=== PATIENT | female | born 1995 | race Caucasian/White ===

== ENCOUNTER 2018-12-30 20:00 | Inpatient (IN) | payer MEDICAID, OTHER ==
[~2018-12-30] VITALS: Ht 162.6 cm; Wt 65.6 kg
[2018-12-30] MEDS ORDERED: LACTATED RINGER'S 1,000 ML IV PRN (21:15)
[2018-12-30] MEDS ORDERED: CARBOPROST 250 MCG INJ IM PRN (21:30)
[2018-12-30] MEDS ORDERED: IBUPROFEN 600 MG TAB PO PRN (21:30)
[2018-12-30] MEDS ORDERED: OXYTOCIN 30 UNITS/LR 500 ML IV PRN (21:30)
[2018-12-30] MEDS ORDERED: METHYLERGONOVINE 0.2 MG INJ IM PRN (21:30)
[2018-12-30] MEDS ORDERED: OXYTOCIN 30 UNITS/LR 500 ML IV SCH ×2 (21:30)
[2018-12-30] MEDS ORDERED: LIDOCAINE 1% (MPF) 30 ML INJ INJ PRN (21:30)
[2018-12-30] MEDS ORDERED: MISOPROSTOL 200 MCG TAB PR PRN (21:30)
[2018-12-30 21:33] VITALS: Ht 162.6 cm; Wt 65.6 kg
[2018-12-30 21:35] VITALS: BP 124/84; PULSE 83; RESP 16
[2018-12-30] MEDS: LACTATED RINGER'S 1,000 ML IV SCH (21:38)
[2018-12-30] MEDS: MISOPROSTOL 50 MCG CAPSULE PO SCH (22:50)
[2018-12-31] MEDS: LACTATED RINGER'S 1,000 ML IV SCH ×3 (02:05→17:24)
[2018-12-31] MEDS: MISOPROSTOL 50 MCG CAPSULE PO SCH ×5 (02:51→22:32)
--- NOTE | 2018-12-31 11:55 | PREOPHP ---
DATE OF ADMISSION: 12/30/2018 HISTORY OF PRESENT ILLNESS: Ms. Saadia Herndon is a 23-year-old 1, para 0, EDC 12/28/2018 i ntrauterine at 40 weeks and 2 days gestational age, admitted for post-EDC induction. She i s currently on Cytotec for cervical ripening. She denies any contractions, vaginal bleeding, or disc harge. Her care took place at [facility]. PAST MEDICAL HISTORY: None. MEDICATIONS: vitamins. PAST SURGICAL HISTORY: None. OBSTETRIC HISTORY: Primigravida. GYNECOLOGIC HISTORY: 12, regular 3 to 4 days. Denies any sexually transmitted infection. Sexually active with 1 partner. SOCIAL HISTORY: Denies any smoking, drugs or alcohol. FAMILY HISTORY: None. REVIEW OF SYSTEMS: All within normal except history of present illness. PHYSICAL EXAMINATION: HEENT: Within normal. LUNGS: CTA bilateral. CARDIOVASCULAR: S1, S2, regular rhythm. ABDOMEN: Gravid, nontender. Negative CVA bilateral. EXTREMITIES: Negative. No calf tenderness. PELVIC: Vaginal exam short and closed. heart tracing category 1, toco occasional contractions . ASSESSMENT: Intrauterine at 40 weeks and 2 days gestational age, admitted for post-EDC ind uction. Currently on Cytotec for cervical ripening. PLAN: Continue cervix Cytotec regimen and continue with Pitocin induction. Risks, benefits and alte rnatives explained. All questions were answered. Dictated By: JOANNA PATEL/KATLYN Conf#: [id number] DID#: [id number]
[2019-01-01] MEDS ORDERED: OXYTOCIN 30 UNITS/LR 500 ML IV SCH (06:00)
[2019-01-01] MEDS: LACTATED RINGER'S 1,000 ML IV SCH ×3 (06:06→19:27)
[2019-01-01] MEDS ORDERED: FENTAnyl 2MCG/ML-ROPIV 0.2% 100 ML ONE (15:25)
--- NOTE | 2019-01-01 15:27 | PREAC ---
Date/Time of Note Date/Time of Note DATE: 01/01/19 TIME: 15:27 Anesthesia Eval and Record Evaluation Time Pre-Procedure Interview DATE: 01/01/19 TIME: 15:27 Age 23 Sex female NPO: 8 hrs Preoperative diagnosis LABOR PAIN Planned procedure LABOR EPIDURAL Past Medical History Past Medical History: Includes : : (1), Para: (0), Gestational age: (40 4/7) Surgery & Anesthesia Issues No known issue Meds Anticoagulation: No Beta Cecelia within 24 hr: No Reason Beta Cecelia not given: Pt. not on B-Cecelia Current Medications Lactated Ringer's 1,000 ml @ 125 mls/hr Q8H IV Last administered on 01/01/19at 14:16; Admin Dose 125 MLS/HR; Start 12/30/18 at 21:15 Lidocaine (Xylocaine 1% (Mpf)) 30 ml ONCE PRN INJ .EPISIOTOMY; Start 12/30/18 at 21:30 Oxytocin/Lactated Ringer's 500 ml @ 500 mls/hr ONCE POST IV ; Start 12/30/18 at 21:30 Oxytocin/Lactated Ringer's 500 ml @ 125 mls/hr POST IV ; Start 12/30/18 at 21:30 Ibuprofen (Motrin) 600 mg ONCE PRN PO .PAIN 1-5; Start 12/30/18 at 21:30 Lactated Ringer's 1,000 ml @ 2,000 mls/hr Q30M PRN IV .ANESTHESIA; Start 12/30/18 at 21:15 Oxytocin/Lactated Ringer's 500 ml @ 0 mls/hr ONCE PRN IV .VAGINAL BLEEDING; Start 12/30/18 at 21:30 Methylergonovine Maleate (Methergine) 0.2 mg ONCE PRN IM .VAGINAL BLEEDING; Start 12/30/18 at 21:30 Carboprost Tromethamine (Hemabate) 250 mcg ONCE PRN IM .VAGINAL BLEEDING; Start 12/30/18 at 21:30 Misoprostol (Cytotec) 1,000 mcg ONCE PRN TN .VAGINAL BLEEDING; Start 12/30/18 at 21:30 Oxytocin/Lactated Ringer's 500 ml @ 0 mls/hr FOR INDUCTION IV Last administered on 01/01/19at 06:04; Admin Dose 1 MLS/HR; Start 01/01/19 at 06:00 Meds reviewed: Yes Allergies Uncoded Allergies: SULFATE (Allergy, Unknown, 12/30/18) SWELLING Allergies Reviewed: Yes Labs/Studies Labs Reviewed: Reviewed by anesthesiologist Result Diagram: 12/30/182099 test: N/A Pre-procedure Exam Last vitals Vital Signs Date Temp Pulse Resp B/P (MAP) Pulse Ox O2 O2 Flow FiO2 Time Delivery Rate 12/30/18 97.7 83 16 124/84 Room Air 21:35 (97) Airway: Adequate mouth opening, Adequate thyromental dist Mallampati: Mallampati II Teeth: Normal Lung: Normal Heart: Normal ASA Physical Status ASA physical status: 2 Emergency: None Planned Anesthetic Neuraxial: Epidural Planned Pain Management Epidural Pre-operative Attestations Prior to commencing anesthesia and surgery, the patient was re-evaluated, there was verification of: *The patient's identity *The results of appropriate recent lab work and preoperative vital signs *The above evaluation not changing prior to induction *Anesthetic plan, risk benefits, alternative and complications discussed with patient/family; questions answered; patient/family understands, accepts and wishes to proceed. Idris Toure M.D. Jan 01, 2019 15:27
[2019-01-01] MEDS ORDERED: TRIMETHOBENZAMIDE 100 MG/ML VIAL IM PRN ×2 (15:30→20:00)
[2019-01-01] MEDS ORDERED: ONDANSETRON 4 MG INJ IV PRN ×2 (15:30→20:00)
[2019-01-01] MEDS ORDERED: DIPHENHYDRAMINE 50 MG INJ IV PRN ×2 (15:30→20:00)
[2019-01-01] MEDS ORDERED: NALOXONE (0.4 MG/ML) INJ IV PRN ×2 (15:30→20:00)
--- NOTE | 2019-01-01 15:55 | PAC ---
Date/Time of Note Date/Time of Note DATE: 01/01/19 TIME: 15:54 Post-Anesthesia Notes Post-Anesthesia Note Last documented vital signs Vital Signs Date Temp Pulse Resp B/P (MAP) Pulse Ox O2 O2 Flow FiO2 Time Delivery Rate 12/30/18 97.7 83 16 124/84 Room Air 21:35 (97) Activity: WNL Respiratory function: WNL Cardiovascular function: WNL Mental status: Baseline Pain reasonably controlled: Yes Hydration appropriate: Yes Nausea/Vomiting absent: Yes Idris Toure M.D. Jan 01, 2019 15:55
[2019-01-01] MEDS ORDERED: FENTAnyl 2MCG/ML-ROPIV 0.2% 100 ML BAG EPI SCH (20:00)
--- NOTE | 2019-01-01 22:44 | LDN ---
Date/Time of Note Date/Time of Note DATE: 01/01/19 TIME: 22:43 Delivery Summary Weeks of Gestation 40 Placenta Delivered: Spontaneously Meconium: none Episiotomy: No Perineal laceration: 2 Laceration repair: 2nd degree vaginal laceration repair with 2-0 and 3-0 chromic Anesthesia type: Epidural Estimated blood loss: 200 Sponge & Needle done & correct: Yes All needle counts correct: Yes Any foreign bodies felt in the: No Infant Delivery Information Sex Infant Sex: female Apgars 1 Minute: 8 5 Minute: 9 Suctioning Nose & mouth suctioned at simone: No Delee suction performed: No Umbilical Cord Umbilical cord with: 3 Vessels Cord presentations: no nuchal cord Cord Blood was obtained: Yes JOANNA LAI MD Jan 01, 2019 22:44
[2019-01-02] VITALS (7 sets, daily range): BP systolic 104–116; BP diastolic 59–76; PULSE 63–83; RESP 14–18
[2019-01-02] MEDS ORDERED: OXYTOCIN 30 UNITS/LR 500 ML IV SCH ×3 (00:35→00:39)
[2019-01-02] MEDS ORDERED: METHYLERGONOVINE 0.2 MG INJ IM PRN ×3 (01:00)
[2019-01-02] MEDS ORDERED: NACL 0.9% 3 ML SYG IV SCH ×3 (01:00)
[2019-01-02] MEDS ORDERED: BENZOCAINE 20% 56 ML SPRAY TOP PRN (01:00)
[2019-01-02] MEDS ORDERED: OXYTOCIN 30 UNITS/LR 500 ML IV PRN ×3 (01:00)
[2019-01-02] MEDS ORDERED: MISOPROSTOL 200 MCG TAB PR PRN ×3 (01:00)
[2019-01-02] MEDS ORDERED: WITCH HAZEL/GLYCERIN PAD PR PRN (01:00)
[2019-01-02] MEDS ORDERED: CARBOPROST 250 MCG INJ IM PRN ×3 (01:00)
[2019-01-02] MEDS: LANOLIN HPA 1 PKT TOP PRN (02:27)
[2019-01-02] MEDS: IBUPROFEN 600 MG TAB PO SCH ×4 (02:49→21:23)
[2019-01-02] MEDS ORDERED: IBUPROFEN 600 MG TAB PO SCH ×2 (06:00)
--- NOTE | 2019-01-02 07:06 | EN ---
Date/Time of Note Date/Time of Note DATE: 01/02/19 TIME: 07:03 Event Note Medicine Medicine Event Note Rapid response was called around 5:30 AM. Patient was in the restroom when she felt easy and felt tired. Reportedly, when she was on the bed, she was noted to have some jerking movement on the left side of her body. Patient and family member who was at the bedside denied history of seizure. Vitals are stable. Patient appears somehow tired, but she is alert and oriented and answering questions appropriately. No focal weakness on physical exam PLAN -CBC and CMP -Twelve-lead EKG -If jerking movements recurs, head CT and EEG AMBROCIO WARD MD Jan 02, 2019 07:06
[2019-01-02] MEDS: SENNA/DOCUSATE NA (8.6MG/50MG) TAB PO SCH ×2 (08:20→21:23)
[2019-01-02] MEDS ORDERED: POTASSIUM CHLORIDE (SR) 20 MEQ TAB PO SCH (08:30)
--- NOTE | 2019-01-02 11:29 | QN ---
Documentation Comment progress note ppd 1 patient was seen and evaluated aao X 3 patient had a questional seizure ana this morning however spoke with a family member who was in the room at the time reports she was "shivering) vs stable afebrile ab sof nt uterine fundus normal extemity no edema no calf tenderness a/ sp vaginal delivery ppd 1 stable afebrile p/ fu with hospitalist JOANNA LAI MD Jan 02, 2019 11:29
--- NOTE | 2019-01-02 15:42 | RADRPT ---
Vent Rate: 66 bpm RR Interval: 912 msec AL Interval: 166 msec QRS Duration: 79 msec QT Interval: 390 msec QTC Interval: 408 msec P-R-T [place]: 64 - 69 - 45 degrees Sinus rhythm...normal P axis, V-rate 50- 99 Electronically Signed By: Magno Hanley
[2019-01-03] VITALS (9 sets, daily range): BP systolic 93–114; BP diastolic 57–79; PULSE 64–105; RESP 14–19
[2019-01-03] MEDS: IBUPROFEN 600 MG TAB PO SCH ×4 (03:07→23:37)
[2019-01-03] MEDS: SENNA/DOCUSATE NA (8.6MG/50MG) TAB PO SCH ×2 (08:49→20:59)
[2019-01-03] MEDS: LANOLIN HPA 1 PKT TOP PRN (10:29)
--- NOTE | 2019-01-03 23:54 | QN ---
Documentation Comment Patent reports had a faint episode yesterday. Apparently a rapid response was called when the patient had a fainting episode. Patient denies losing any consciousness. There was a questionable jerking movement of the upper extremity by family witnessed. Patient reports after that episode could ambulating. She urinated. She reports occasional lightheadedness. She denies any chest pain or shortness of breath. General appearance: Alert and oriented x4 does not appear to be in any acute distress Abdomen: Soft, fundus palpable below the umbilicus and nontender. Extremity: No calf tenderness, no click no edema no cord palpable CV: RRR Chest: Clear to auscultation bilaterally Breast: No evidence of mastitis or fissure VS - Last 72 Hours, by Label Date Temp Pulse Resp B/P (MAP) Pulse Ox O2 O2 Flow FiO2 Time Delivery Rate 01/03/19 86 108/63 16:50 (78) 01/03/19 102 108/70 16:49 (83) 01/03/19 98.4 100 14 114/68 Room Air 16:48 (83) 01/03/19 68 112/62 10:05 (79) 01/03/19 105 104/62 10:02 (76) 01/03/19 82 16 93/57 (69) Room Air 10:00 01/03/19 98.4 64 16 113/79 Room Air 08:30 (90) 01/03/19 98.3 68 18 110/59 Room Air 04:11 (76) 01/02/19 98.2 83 18 116/76 Room Air 19:45 (89) 01/02/19 98.1 72 16 104/59 Room Air 16:45 (74) 01/02/19 98.4 68 17 112/67 Room Air 12:37 (82) 01/02/19 98.6 63 14 106/64 Room Air 08:30 (78) 01/02/19 61 05:20 01/02/19 98.8 80 18 109/71 Room Air 03:30 (84) 01/02/19 98.6 82 18 116/74 Room Air 03:00 (88) 01/02/19 98.0 65 18 108/65 Room Air 00:25 (79) Laboratory Tests Test 01/03/19 10:48 Hemoglobin 12.1 Hematocrit 35.4 L Status post day #2 Fainting episode, unclear etiology. Hemoglobin stable. Patient is not anemic and hemodynamically stable Etiology of fainting versus questionable seizure unclear Apparently there was some jerking movement of upper extremities witnessed by family. Patient was seen by hospitalist. Recommended more evaluation including CVA if episode occurs again Orthostatics abnormal. Patient does not appear to be bleeding. Recommended patient to be seen again by hospitalist . Might need more further assessment and evaluation. Ambulation at this time only with nursing assistance. If any episodes of jerking movement occurs again RN to inform hospitalist Patient at this point will stay in the hospital until be seen tomorrow by hospitalist. Dr. CEBALLOS agreed to see the patient in a.. MANUEL BAI MD Jan 03, 2019 23:54
[2019-01-04] VITALS (8 sets, daily range): BP systolic 105–122; BP diastolic 55–78; PULSE 74–101; RESP 15–19
[2019-01-04] MEDS: IBUPROFEN 600 MG TAB PO SCH ×4 (05:40→21:00)
[2019-01-04] MEDS: SENNA/DOCUSATE NA (8.6MG/50MG) TAB PO SCH ×2 (10:46→23:33)
--- NOTE | 2019-01-04 11:18 | RADRPT ---
Echocardiogram Report Patient Name: HIEN ROTHMANPatient ID: [id number] : 1995 (23y 9m)Study Date: 01/04/2019 7:37:52 AM Gender: FAccession #: [id number] Tech: Gray Pena RDCS Location: 328 Ref.Physician: AMBROCIO WARD Height(Cm): BSA: Weight(Kg): Quality: AdequateOrder Physician: AMBROCIO WARD Account #: Procedures: Echocardiographic Report: Transthoracic echocardiogram with complete 2D, M-Mode, and doppler examination. Indications: Dizziness, and Syncope. Measurements: 2D/M Mode Doppler Measurement Value Normal Range Measurement Value Normal Range LVIDd 2D 5.0 [ 3.8 - 5.2 ] cm AV Peak González 1.5 [ 100.0 - 170.0 ] cm/sec LVIDs 2D 2.9 [ 2.2 - 3.5 ] cm AV Peak PG 9.0 [ 2.0 - 9.0 ] mmHg LVPWd 2D 0.7 [ 0.6 - 0.9 ] cm LVOT Peak González 1.2 [ 70.0 - 110.0 ] cm/sec IVSd 2D 0.6 [ 0.6 - 0.9 ] cm LVOT Peak PG 6.0 [ 2.0 - 6.0 ] mmHg AoR Diam 2D 2.2 [ 2.3 - 3.1 ] cm MV E Peak González 1.0 [ 60.0 - 130.0 ] cm/sec EDV 2D 117.0 [ 46.0 - 106.0 ] ml MV A Peak González 0.7 [ 100.0 - 120.0 ] cm/sec ESV 2D 31.1 [ 14.0 - 42.0 ] ml MV E/A 1.5 [ 0.8 - 1.5 ] ratio EF 2D 73.4 [ 54.0 - 74.0 ] percent MV Decel Time 222 [ 104 - 258 ] msec LA Dimen 2D 3.0 [ 2.7 - 3.8 ] cm Lat E` González 0.2 [ 10.0 - 15.0 ] cm/sec Lateral E/E` 6.0 [ 1.0 - 2.0 ] ratio MV E/A 1.5 [ 0.8 - 1.5 ] ratio TR Peak González 2.7 [ 100.0 - 280.0 ] cm/sec TR Peak PG 30.0 mmHg RVSP 33.0 [ 10.0 - 36.0 ] mmHg RA Pressure 3.0 mmHg Findings: Left Ventricle: Normal left ventricular systolic function. Normal left ventricular cavity size. Normal left ventricular wall thickness. Ejection fraction is visually estimated at 55 %. Tissue Doppler/Mitral Doppler indices are within normal limits. Right Ventricle: Normal right ventricular size. Normal right ventricular systolic function. Left Atrium: The left atrium is normal in size. Right Atrium: The right atrium is normal in size. Mitral Valve: Normal appearance and function of the mitral valve with trace physiologic regurgitation. Aortic Valve: Normal appearance of the aortic valve. No significant aortic stenosis or insufficiency. Tricuspid Valve: Normal appearance of the tricuspid valve. The estimated Peak RVSP is 33 mmHg. There is mild tricuspid regurgitation. Pulmonic Valve: Normal pulmonic valve appearance. Pericardium: Normal pericardium with no significant pericardial effusion. Aorta: Normal aortic root. IVC: Normal size and normal respiratory collapse consistent with normal right atrial pressure. Conclusions: Normal left ventricular systolic function. Normal left ventricular cavity size. Normal left ventricular wall thickness. Ejection fraction is visually estimated at 55 %. Tissue Doppler/Mitral Doppler indices are within normal limits. Normal appearance of the tricuspid valve. The estimated Peak RVSP is 33 mmHg. There is mild tricuspid regurgitation. Normal appearance and function of the mitral valve with trace physiologic regurgitation. Electronically Signed By: Santi Jama 2019-01-04 11:18:03 PDT
--- NOTE | 2019-01-04 13:55 | RADRPT ---
Vent Rate: 57 bpm RR Interval: 1048 msec SC Interval: 156 msec QRS Duration: 81 msec QT Interval: 424 msec QTC Interval: 414 msec P-R-T [place]: 60 - 63 - 46 degrees Sinus rhythm...normal P axis, V-rate 50- 99 Electronically Signed By: Magno Hanley
[2019-01-04] MEDS ORDERED: MECLIZINE 25 MG TAB PO PRN (14:00)
--- NOTE | 2019-01-04 15:29 | CONS ---
Assessment/Plan Assessment/Plan Hospital Course (Demo Recall) Assessment and plan 1. Suspect dizziness/vertigo. Largely resolved at present. Suspect remnants from reported epidural use during . meclizine prn. Echo with EF of 55%. CT scan brain with no acute findings. EKG with normal sinus rhythm. Orthostatic blood pressures done with no significant hypotension. No significant anemia. Patient did report ambulating around hospital unit with no further symptoms of dizziness or vertigo. Will monitor. 2. Status post vaginal delivery. Remains stable at present. Continue supportive care. Disposition plan. Overall remained stable at present. No reports of syncope, dizziness, or vertigo. Stable from hospital standpoint for discharge. Follow- up with [facility]. Discussed POC with Dr. Malave Consultation Date/Type/Reason Admit Date/Time Dec 30, 2018 at 20:00 Date/Time of Note DATE: 01/04/19 TIME: 15:20 Hx of Present Illness This is a 23 year old female with recent vaginal delivery on January 01, 2019, was brought through the hospital service the reports of dizziness. Was reported on January 02, 2019 that rapid response was called. Patient was in the restroom when she reportedly felt dizzy and was found to have some jerking movement on left side of her body. She denied any history of seizures. Vital signs remained stable. CT scan of the brain was ordered that showed no acute intracranial hemorrhage or transcortical infarction. Echo with preserved EF with ejection fraction 55%. No elect light disturbance is noted. Orthostatic blood pressures were also obtained with no significant hypertension seen. Patient was ambulated around the room thereafter and denies any chest pain shortness of breath or any further symptoms of dizziness. Suspect etiology from reported epidural use during . He is alert and oriented at present. Denies any cephalgia. We will evaluate her for the aformentiond issues. 12 point review of systems and negative except as mentioned in history of present illness Past Medical History medical/surgical history 1. denies any previous history Medications Current Medications Senna/Docusate Sodium (Senokot-S) 1 tab BID PO Last administered on 01/04/19at 10:46; Admin Dose 1 TAB; Start 01/02/19 at 09:00 Witch Rachana/ Glycerin (Tucks Pads) 1 pad BEDSIDE MEDICATION PRN IN .HEMORRHOID/EPISIOTOMY PAIN Last administered on 01/02/19at 02:27; Admin Dose 40 PAD; Start 01/02/19 at 01:00 Benzocaine (Dermoplast [place]) 1 spray BEDSIDE MEDICATION PRN TOP .HEMMORHOID/EPISIOTOMY PAIN Last administered on 01/02/19at 02:27; Admin Dose 56 SPRAY; Start 01/02/19 at 01:00 Lanolin (Lanolin Hpa) 1 applic BEDSIDE MEDICATION PRN TOP .NIPPLES Last administered on 01/03/19at 10:29; Admin Dose 1 APPLIC; Start 01/02/19 at 01:00 Oxytocin/Lactated Ringer's 500 ml @ 0 mls/hr ONCE PRN IV .VAGINAL BLEEDING; Start 01/02/19 at 01:00 IV Flush (NS 3 ml) 3 ml PER PROTOCOL IV ; Start 01/02/19 at 01:00 Oxytocin/Lactated Ringer's 500 ml @ 0 mls/hr ONCE PRN IV .VAGINAL BLEEDING; Start 01/02/19 at 01:00 Methylergonovine Maleate (Methergine) 0.2 mg ONCE PRN IM .VAGINAL BLEEDING; S tart 01/02/19 at 01:00 Carboprost Tromethamine (Hemabate) 250 mcg ONCE PRN IM .VAGINAL BLEEDING; Start 01/02/19 at 01:00 Misoprostol (Cytotec) 1,000 mcg ONCE PRN IN .VAGINAL BLEEDING; Start 01/02/19 at 01:00 Ibuprofen (Motrin) 600 mg Q6H PO Last administered on 01/04/19at 10:46; Admin Dose 600 MG; Start 01/02/19 at 03:00 Meclizine HCl (Antivert) 25 mg TID PRN PO dizziness; Start 01/04/19 at 14:00 Allergies: Uncoded Allergies: SULFATE (Allergy, Unknown, 12/30/18) SWELLING Social History Alcohol Use: none Smoking Status: Never smoker Drug Use: none Exam/Review of Systems Exam Vitals Vital Signs Date Temp Pulse Resp B/P (MAP) Pulse Ox O2 O2 Flow FiO2 Time Delivery Rate 01/04/19 74 15 107/55 14:11 (72) 01/04/19 98.2 96 Room Air 14:07 Constitutional: alert, oriented Psych: nl mood/affect Neck: supple, non-tender Respiratory: clear to auscultation Cardiovascular: regular rate and rhythm Gastrointestinal: soft, non-tender Neurological: DEVULCANIZER OPERATOR II-XII intact, nl mental status, nl speech Skin: nl turgor Results Result Diagram: 01/03/19 1048 01/04/19 0600 Results 24hrs Laboratory Tests Test 01/04/19 06:00 01/04/19 07:05 01/04/19 12:30 Sodium Level 139 Potassium Level 3.6 Chloride Level 107 Carbon Dioxide Level 26 Anion Gap 6 Blood Urea Nitrogen 6 L Creatinine 0.47 Est Glomerular Filtrat Rate mL/min > 60 Glucose Level 78 Calcium Level 8.3 L Total Bilirubin 0.5 Direct Bilirubin 0.00 Indirect Bilirubin 0.5 Aspartate Amino Transf (AST/SGOT) 26 Alanine Aminotransferase (ALT/SGPT) 21 Alkaline Phosphatase 106 Total Protein 5.4 L Albumin 2.7 L Globulin 2.70 Albumin/Globulin Ratio 1.00 Creatine Kinase 193 197 Creatine Kinase Index 1.2 1.1 Creatinine Kinase MB (Mass) 2.22 2.26 Troponin I < 0.012 < 0.012 Medications Medication Current Medications Senna/Docusate Sodium (Senokot-S) 1 tab BID PO Last administered on 01/04/19at 10:46; Admin Dose 1 TAB; Start 01/02/19 at 09:00 Witch Rachana/ Glycerin (Tucks Pads) 1 pad BEDSIDE MEDICATION PRN IN .HEMORRHOID/EPISIOTOMY PAIN Last administered on 01/02/19at 02:27; Admin Dose 40 PAD; Start 01/02/19 at 01:00 Benzocaine (Dermoplast [place]) 1 spray BEDSIDE MEDICATION PRN TOP .HEMMORHOID/EPISIOTOMY PAIN Last administered on 01/02/19at 02:27; Admin Dose 56 SPRAY; Start 01/02/19 at 01:00 Lanolin (Lanolin Hpa) 1 applic BEDSIDE MEDICATION PRN TOP .NIPPLES Last administered on 01/03/19 10:29; Admin Dose 1 APPLIC; Start 01/02/19 at 01:00 Oxytocin/Lactated Ringer's 500 ml @ 0 mls/hr ONCE PRN IV .VAGINAL BLEEDING; Start 01/02/19 at 01:00 IV Flush (NS 3 ml) 3 ml PER PROTOCOL IV ; Start 01/02/19 at 01:00 Oxytocin/Lactated Ringer's 500 ml @ 0 mls/hr ONCE PRN IV .VAGINAL BLEEDING; Start 01/02/19 at 01:00 Methylergonovine Maleate (Methergine) 0.2 mg ONCE PRN IM .VAGINAL BLEEDING; Start 01/02/19 at 01:00 Carboprost Tromethamine (Hemabate) 250 mcg ONCE PRN IM .VAGINAL BLEEDING; Start 01/02/19 at 01:00 Misoprostol (Cytotec) 1,000 mcg ONCE PRN IN .VAGINAL BLEEDING; Start 01/02/19 at 01:00 Ibuprofen (Motrin) 600 mg Q6H PO Last administered on 01/04/19at 10:46; Admin Dose 600 MG; Start 01/02/19 at 03:00 Meclizine HCl (Antivert) 25 mg TID PRN PO dizziness; Start 01/04/19 at 14:00 BENNETT ROSARIO NP Jan 04, 2019 15:29
--- NOTE | 2019-01-04 17:43 | QN ---
Documentation Comment no similar episodes after dizzy spell called for rapid response team yesterday nothing done by Hospitalist no recommendation is written spoke to Dr Ma today and told that pt will be evaluated futher hold discharge LA STYLES MD Jan 04, 2019 17:43
[2019-01-05] MEDS: IBUPROFEN 600 MG TAB PO SCH ×3 (03:15→14:59)
[2019-01-05 03:56] VITALS: BP 117/67; PULSE 63; RESP 18
[2019-01-05] MEDS: SENNA/DOCUSATE NA (8.6MG/50MG) TAB PO SCH (08:22)
[2019-01-05 08:30] VITALS: BP 109/66; PULSE 68; RESP 18
--- NOTE | 2019-01-05 15:51 | DS ---
Date/Time of Note Date/Time of Note DATE: 01/05/19 TIME: 15:50 Obstetrical Discharge Record Final Diagnosis Final Diagnosis: Term delivered Other Final Diagnosis Subjective: Patient without complaints. Tolerating a regular diet. Breast- feeding. Lochia within normal limits. Has not ambulated. Desires IUD for contraception. Objective: Vital signs within normal limits. H/H: 12.1/35.4 General: No apparent distress. Abdomen: Fundus 2 fingerbreadths below the umbilicus Extremities nontender to palpation. Assessment/plan: 1. day #1-routine care. She was admitted to the hospital at 40 weeks and 2 days for post EDC induction. Delivered via vaginally on 01/01/2019. Her hospital course was complicated by #2. Was discharged to home on day #4. 2. Dizziness/vertigopatient was evaluated by hospitalist team. Of work-up. Condition on Discharge Physical Assessment Patient Condition: Stable MILESTONE,KORY CEBALLOS Jan 05, 2019 15:51
[2019-01-05] MEDS ORDERED: IBUP-1542 PO (15:56)
--- NOTE | 2019-01-05 16:06 | PN ---
Date/Time of Note Date/Time of Note DATE: 01/05/19 TIME: 16:04 Assessment/Plan VTE Prophylaxis Risk score (from Ns)>0 risk: 1 SCD applied (from Ns): No SCD contraindicated: low risk/ambulating, other Pharmacological prophylaxis: NA/contraindicated Pharm contraindication: low risk/ambulating Lines/Catheters IV C[facility]ter Type (from [facility] Peripheral IV Assessment/Plan Hospital Course Assessment and plan 1. Suspect dizziness/vertigo. Largely resolved at present. Suspect remnants From reported epidural use during . meclizine prn. Echo with EF of [address] scan brain with no acute findings. EKG with normal sinus rhythm. Orthostatic blood pressures done with no significant hypotension. No significant anemia. Patient did report ambulating around hospital unit with no further symptoms of dizziness or vertigo. Will monitor. 2. Status post vaginal delivery. Remains stable at present. Continue supportive care. Disposition plan. continue current tx. No reports of syncope, dizziness, or vertigo. Stable for d/c. d/c per AIRPORT CLERK. Discussed POC with Dr. Malave Result Diagram: 01/03/19 1048 01/04/19 0600 Results 24hrs Laboratory Tests Test 01/05/19 01:00 Urine Color [place] Urine Clarity CLOUDY A Urine pH 7.0 Urine Specific [place] 1.011 Urine Ketones NEGATIVE Urine Nitrite NEGATIVE Urine Bilirubin NEGATIVE Urine Urobilinogen NEGATIVE Urine Leukocyte Esterase 2+ H Urine Microscopic RBC > 182 H Urine Microscopic WBC > 182 H Urine Squamous Epithelial Cells FEW Urine Transitional Epithelial Cells FEW A Urine Amorphous Crystals FEW A Urine Bacteria FEW A Urine Hemoglobin 3+ H Urine Glucose NEGATIVE Urine Total Protein 2+ H Subjective 24 Hr Interval Summary Free Text/Dictation patient seen ambulating in room. no dizziness reported Exam/Review of Systems Exam Vitals Vital Signs Date Temp Pulse Resp B/P (MAP) Pulse Ox O2 O2 Flow FiO2 Time Delivery Rate 01/05/19 Room Air 12:15 01/05/19 98.1 68 18 109/66 08:30 (80) 01/04/19 96 14:07 Exam Constitutional: alert, oriented Psych: nl mood/affect Neck: supple, non-tender Respiratory: clear to auscultation Cardiovascular: regular rate and rhythm Gastrointestinal: soft, non-tender Neurological: COMPUTER METEOROLOGIST II-XII intact, nl mental status, nl speech Skin: nl turgor Results Results 24hrs Laboratory Tests Test 01/05/19 01:00 Urine Color [place] Urine Clarity CLOUDY A Urine pH 7.0 Urine Specific [place] 1.011 Urine Ketones NEGATIVE Urine Nitrite NEGATIVE Urine Bilirubin NEGATIVE Urine Urobilinogen NEGATIVE Urine Leukocyte Esterase 2+ H Urine Microscopic RBC > 182 H Urine Microscopic WBC > 182 H Urine Squamous Epithelial Cells FEW Urine Transitional Epithelial Cells FEW A Urine Amorphous Crystals FEW A Urine Bacteria FEW A Urine Hemoglobin 3+ H Urine Glucose NEGATIVE Urine Total Protein 2+ H Medications Medication Current Medications Senna/Docusate Sodium (Senokot-S) 1 tab BID PO Last administered on 01/05/19at 08:22; Admin Dose 1 TAB; Start 01/02/19 at 09:00 Witch Rachana/ Glycerin (Tucks Pads) 1 pad BEDSIDE MEDICATION PRN WI .HEMORRHOID/EPISIOTOMY PAIN Last administered on 01/02/19at 02:27; Admin Dose 40 PAD; Start 01/02/19 at 01:00 Benzocaine (Dermoplast [place]) 1 spray BEDSIDE MEDICATION PRN TOP .HEMMORHOID/EPISIOTOMY PAIN Last administered on 01/02/19at 02:27; Admin Dose 56 SPRAY; Start 01/02/19 at 01:00 Lanolin (Lanolin Hpa) 1 applic BEDSIDE MEDICATION PRN TOP .NIPPLES Last adm inistered on 01/03/19at 10:29; Admin Dose 1 APPLIC; Start 01/02/19 at 01:00 Oxytocin/Lactated Ringer's 500 ml @ 0 mls/hr ONCE PRN IV .VAGINAL BLEEDING; Start 01/02/19 at 01:00 IV Flush (NS 3 ml) 3 ml PER PROTOCOL IV ; Start 01/02/19 at 01:00 Oxytocin/Lactated Ringer's 500 ml @ 0 mls/hr ONCE PRN IV .VAGINAL BLEEDING; Start 01/02/19 at 01:00 Methylergonovine Maleate (Methergine) 0.2 mg ONCE PRN IM .VAGINAL BLEEDING; Start 01/02/19 at 01:00 Carboprost Tromethamine (Hemabate) 250 mcg ONCE PRN IM .VAGINAL BLEEDING; Start 01/02/19 at 01:00 Misoprostol (Cytotec) 1,000 mcg ONCE PRN WI .VAGINAL BLEEDING; Start 01/02/19 at 01:00 Ibuprofen (Motrin) 600 mg Q6H PO Last administered on 01/05/19at 14:59; Admin Dose 600 MG; Start 01/02/19 at 03:00 Meclizine HCl (Antivert) 25 mg TID PRN PO dizziness; Start 01/04/19 at 14:00 BENNETT ROSARIO NP Jan 05, 2019 16:06
[2019-01-05 16:43] VITALS: BP 114/76; PULSE 80; RESP 18
--- NOTE | 2019-01-06 17:20 | DELSUM ---
Delivery Summary A-C Datetime Report Generated by CPN: 01/06/2019 17:20 DELIVERY PERSONNEL Nuclear Medical Technologist: Agustin Lesli MATERNAL INFORMATION Delivery Anesthesia: Epidural Medications in Delivery: 30 UNITS OF PITOCIN Delivery QBL (ml): 200 Placenta Cultured: No Maternal Complications: None LABOR SUMMARY EDC: 12/28/2018 00:00 No. Babies in Womb: 1 Attempted: No Labor Anesthesia: Epidural LABOR INFORMATION Reason for Induction: Postterm Complete Dilatation: 01/01/2019 21:51 Cervical Ripening Agents: Cytotec @ 50 MCG Group B Beta Strep: Negative Steroids Given: None Reason Steroids Not Administered: Not Applicable MEMBRANES Membranes Rupture Method: Spontaneous Rupture of Membranes: 01/01/2019 20:01 Length of Rupture (hr): 2.45 Amniotic Fluid Color: Clear Amniotic Fluid Amount: Moderate Amniotic Fluid Odor: None STAGES OF LABOR Stage 2 hr: 0 Stage 2 min: 37 Stage 3 hr: 0 Stage 3 min: 1 VAGINAL DELIVERY Episiotomy: None Laceration Extension: Second Degree Laceration Type: Perineal Laceration Repair: Yes Initial Vag Sponge Count: 10 Final Vag Sponge Count: 10 Initial Vag Sharps Count: 1+3 Final Vag Sharps Count: 4 Sponge Count Correct: Yes; Vaginal Sweep Performed Sharps Count Correct: Yes BABY A INFORMATION Infant Delivery Date/Time: 01/01/2019 22:28 Method of Delivery: Vaginal Born in Route : No : N/A Forceps: N/A Vacuum Extraction: N/A Shoulder Dystocia : N/A SHOULDER DYSTOCIA BABY A Infant Delivery Date/Time: 01/01/2019 22:28 PRESENTATION/POSITION BABY A Presentation: Cephalic Cephalic Presentation: Vertex Vertex Position: Left Occipital Posterior Breech Presentation: N/A PLACENTA INFORMATION BABY A Placenta Delivery Time : 01/01/2019 22:29 Placenta Method of Delivery: Spontaneous Placenta Status: Delivered SCORES BABY A Heart Rate 1 min: >100 bpm Resp Effort 1 min: Good Cry Reflex Irritability 1 min: Cough/Sneeze/Pulls Away Muscle Tone 1 min: Active Motion Color 1 min: Blue/Pale Resuscitation Effort 1 min: Tactile Stimulation SCORE 1 MIN: 8 Heart Rate 5 min: >100 bpm Resp Effort 5 min: Good Cry Reflex Irritability 5 min: Cough/Sneeze/Pulls Away Muscle Tone 5 min: Active Motion Color 5 min: Body Sundown, Extremit Blue Resuscitation Effort 5 min: Tactile Stimulation SCORE 5 MIN: 9 INFANT INFORMATION BABY A Gestational Age at Delivery: 40.4 Gestational Status: Full Term- 39- 40.6 Weeks Outcome : Liveborn, with signs of life Condition : Stable Sex: Female IDENTIFICATION/MEDS BABY A ID Band Number: [id number] ID Band Location: Right Leg; Left Arm Sensor Applied: Yes Sensor Number: [id number] Sensor Location : Cord Clamp Vitamin K Given : Not Given Erythromycin Given: Not Given WEIGHT/LENGTH BABY A Birthweight (gm): 3365 Infant Weight (lb): 7 Infant Weight (oz): 7 Length (in): 19.50 Infant Length (cm): 49.53 CORD INFORMATION BABY A No. Cord Vessels: 3 Nuchal Cord : N/A Cord Blood Taken: Yes Infant Suction: Mouth; Nose ASSESSMENT BABY A Complications: Other Physical Findings at Delivery: Within Normal Limits Physical Findings- Other: STOOL X1 Infant Respirations: Appears Normal Automotive Sales Representative/ALS Called : No Infant Care By: NARCISO LOU Transferred To: Remains with Mother
== END 2019-01-05 17:19 | disposition home or self-care (01) | DRG 807 ==
LOC: L-D 20:00 → PP1 01-02 00:24
PROVIDERS: ADMIT Obstetrics & Gynecology; ATTEND Obstetrics & Gynecology
PROC: 10E0XZZ Delivery of Products of Conception, External Approach (ICD-10-PCS; principal; 2019-01-01)
PROC: 0KQM0ZZ Repair Perineum Muscle, Open Approach (ICD-10-PCS; 2019-01-01)
PROC: 3E033VJ Introduction of Other Hormone into Peripheral Vein, Percutaneous Approach (ICD-10-PCS; 2019-01-01)
PROC: 3E0P7VZ Introduction of Hormone into Female Reproductive, Via Natural or Artificial Opening (ICD-10-PCS; 2019-01-01)
DX: O71.4 Obstetric high vaginal laceration alone (principal); Z37.0 Single live birth; Z3A.40 40 weeks gestation of pregnancy; O90.89 Other complications of the puerperium, not elsewhere classified; R42 Dizziness and giddiness
CPT/HCPCS: 62322; 70450; 76815; 80053; 81001; 82550; 82553; 82962; 84484; 85014; 85018; 85025; 85610; 85730; 86592; 86850; 86900; 86901; 93005; 93306; J2590; J3010; J7120